=== PATIENT | female | born 1950 | race Caucasian/White ===

== ENCOUNTER 2017-04-03 16:07 | Observation (INO) | payer MEDICARE, OTHER ==
[~2017-04-03] VITALS: Ht 165.1 cm; Wt 110.3 kg
[2017-04-03 17:45] LABS: HEMOGLOBIN 14.8 gm/dl (12.3-15.3); RED BLOOD COUNT 4.77 M/UL (4.00-5.10); WHITE BLOOD COUNT 11.4 K/UL (4.5-11.0)
[2017-04-03 18:02] LABS: BUN/CREATININE RATIO 15 (0-10)
[2017-04-03] MEDS ORDERED: NEURONTIN 100100 MG PO (21:02)
[2017-04-03] MEDS ORDERED: HYDROCHLOROTHIA25 MG PO (21:03)
[2017-04-03] MEDS ORDERED: IMDUR ER TAB 6060 MG PO (21:04)
[2017-04-03] MEDS ORDERED: OMEPRAZOLE20 M1 PO (21:04)
[2017-04-03] MEDS ORDERED: LISINOPRIL10 MG PO (21:04)
[2017-04-03] MEDS ORDERED: SIMVASTATIN20 MG PO (21:04)
[2017-04-03] MEDS ORDERED: TRANXENE 7.5 M7.5 MG PO (21:05)
[2017-04-03] MEDS ORDERED: LORATADINE10 M1 PO (21:06)
[2017-04-03] MEDS ORDERED: ASPIR 8181 MG PO (21:06)
[2017-04-03] MEDS ORDERED: HYDROCODON-ACE1 EAC4 PO (21:06)
[2017-04-03] MEDS ORDERED: SENNA LAXATIVE8.6 MG PO (21:07)
[2017-04-03] MEDS ORDERED: TORSEMIDE10 MG PO (21:07)
[2017-04-03] MEDS ORDERED: OMEGA-31000 MG PO (21:07)
[2017-04-04 05:20] LABS: HEMOGLOBIN 14.5 gm/dl (12.3-15.3); RED BLOOD COUNT 4.73 M/UL (4.00-5.10); WHITE BLOOD COUNT 11.2 K/UL (4.5-11.0)
[2017-04-05] MEDS ORDERED: LOPRESSOR 25 MG25 MG PO (17:18)
== END 2017-04-05 17:52 | disposition home or self-care (01) ==
LOC: ER1 16:07 → ZEROF 18:00 → MED SURG 4 20:04
PROVIDERS: Emergency Medicine; ADMIT Internal Medicine
DX: R07.9 Chest pain, unspecified (principal); G89.29 Other chronic pain; I10 Essential (primary) hypertension; K21.9 Gastro-esophageal reflux disease without esophagitis; R73.03 Prediabetes; E78.5 Hyperlipidemia, unspecified; F17.210 Nicotine dependence, cigarettes, uncomplicated; Z79.82 Long term (current) use of aspirin; Z79.891 Long term (current) use of opiate analgesic; Z79.899 Other long term (current) drug therapy; Z85.3 Personal history of malignant neoplasm of breast; Z91.041 Radiographic dye allergy status; Z88.8 Allergy status to other drugs, medicaments and biological substances; Z82.49 Family history of ischemic heart disease and other diseases of the circulatory system
CPT/HCPCS: ECHO; 36415; 71010; 78452; 80048; 80053; 80061; 84484; 85025; 85027; 93017; 93306; 96374; 99285; A9502; G0378; J1650; J2405; J2785

== ENCOUNTER → 2017-04-13 | Outpatient (CLI) | payer MEDICARE, OTHER ==
[~2017-04-13] MED LIST: ASPIR 8181 MG PO; HYDROCHLOROTHIA25 MG PO; HYDROCODON-ACE1 EAC4 PO; IMDUR ER TAB 6060 MG PO; LISINOPRIL10 MG PO; LOPRESSOR 25 MG25 MG PO; LORATADINE10 M1 PO; NEURONTIN 100100 MG PO; OMEGA-31000 MG PO; OMEPRAZOLE20 M1 PO; SENNA LAXATIVE8.6 MG PO; SIMVASTATIN20 MG PO; TORSEMIDE10 MG PO; TRANXENE 7.5 M7.5 MG PO
== END ==
LOC: EMI 14:24
DX: M54.2 Cervicalgia (principal); M54.5 Low back pain; M51.26 Other intervertebral disc displacement, lumbar region; M51.27 Other intervertebral disc displacement, lumbosacral region; M99.73 Connective tissue and disc stenosis of intervertebral foramina of lumbar region; N28.1 Cyst of kidney, acquired
CPT/HCPCS: 72141; 72148